=== PATIENT | female | born 1955 | race Caucasian/White ===

== ENCOUNTER 2022-02-17 23:52 | Emergency (ER) | payer OTHER, MEDICAID ==
[~2022-02-17] VITALS: Ht 170.2 cm; Wt 84.5 kg
[2022-02-18] MEDS ORDERED: LORazepam 2 mg/ml vial IV ONE
[2022-02-18 00:39] LABS: BASOPHILS % (AUTO) 0.5 % (0-1); EOSINOPHILS # (AUTO) 0.1 X10'3 (0-0.9); EOSINOPHILS % (AUTO) 1.8 % (0-6); HEMATOCRIT 39.5 % (35.0-45.0); HEMOGLOBIN 13.6 g/dl (12.0-16.0); LYMPHOCYTES # (AUTO) 0.6 X10'3 (1.1-4.8); LYMPHOCYTES % (AUTO) 10.1 % (21-51); MEAN CORPUSCULAR HEMOGLOBIN 30.6 PG (27.0-31.0); MEAN CORPUSCULAR HGB CONC 34.5 g/dL (33.0-36.5); MEAN CORPUSCULAR VOLUME 88.6 FL (78-98); MEAN PLATELET VOLUME 7.8 FL (7.4-10.4); MONOCYTES # (AUTO) 0.4 X10'3 (0-0.9); MONOCYTES % (AUTO) 7.1 % (2-12); NEUTROPHILS # (AUTO) 5.1 X10'3 (1.8-7.7); NEUTROPHILS % (AUTO) 80.5 % (42-75); PLATELET COUNT 235 X10'3 (140-440); RED BLOOD COUNT 4.46 X10'6 (4.20-5.60); RED CELL DISTRIBUTION WIDTH 13.6 % (11.5-14.5); WHITE BLOOD COUNT 6.3 X10'3 (4.5-11.0)
[2022-02-18] MEDS ORDERED: acetaminophen 325mg tablet PO ONE (00:50)
[2022-02-18 01:01] LABS: ALANINE AMINOTRANSFERASE 42 U/L (12-78); ALBUMIN 3.7 G/DL (3.4-5.0); ALKALINE PHOSPHATASE 86 IU/L (46-116); ANION GAP 12 (8-16); ASPARTATE AMINO TRANSFERASE 28 U/L (10-37); BILIRUBIN,TOTAL 0.8 MG/DL (0.1-1.0); BLOOD UREA NITROGEN 20 MG/DL (7-18); BUN/CREATININE RATIO 19.4 (6.6-38.0); CALCIUM 8.8 MG/DL (8.5-10.1); CHLORIDE 106 MMOL/L (99-107); CREATININE 1.03 MG/DL (0.40-0.90); GLUCOSE 114 MG/DL (70-104); LIPASE 84 U/L (73-393); MAGNESIUM 2.1 MG/DL (1.5-2.4); POTASSIUM 3.9 MMOL/L (3.5-5.1); SODIUM 141 MMOL/L (135-145); TOTAL CARBON DIOXIDE 23.3 MMOL/L (24-32); TOTAL PROTEIN 7.4 G/DL (6.4-8.2); eGFR 54 ML/MIN
[2022-02-18 01:40] LABS: CLARITY,URINE CLEAR (Clear); COLOR,URINE YELLOW (Yellow); GLUCOSE, URINE NEGATIVE (Neg); KETONES,URINE NEGATIVE (Neg); LEUKOCYTE ESTERASE ,URINE NEGATIVE (Neg); NITRITES, URINE NEGATIVE (Neg); OCCULT BLOOD,URINE NEGATIVE (Neg); PROTEIN,URINE NEGATIVE (Neg); UROBILINOGEN,URINE 0.2 E.U/dL (0.2-1.0)
[2022-02-18 01:50] LABS: UA COLLECTION TYPE NON-SPECIFIED
[2022-02-18] MEDS ORDERED: diphenhydrAMINE 50 mg/ml inj IV PRN (03:35)
[2022-02-18] MEDS ORDERED: famotidine/PF 10 mg/ml inj IV PRN (03:35)
[2022-02-18] MEDS ORDERED: epiNEPHrine 1 mg/ml inj IM PRN (03:35)
[2022-02-18] MEDS ORDERED: acetaminophen 325mg tablet PO PRN (03:35)
[2022-02-18] MEDS ORDERED: albuterol 2.5 MG/3 ML nebule NEB PRN (03:35)
[2022-02-18] MEDS ORDERED: hydrocortisone sod succ/PF 100mg/2ml inj. IV PRN (03:35)
[2022-02-18] MEDS ORDERED: BEBTELOVIMAB 175 MG/2 ML VIAL IV ONE (03:35)
[2022-02-18 03:42] LABS: C-REACTIVE PROTEIN 0.56 MG/DL (0.0-0.5)
--- NOTE | 2022-02-18 04:01 | NUR ---
PT GIVEN THE BEBTELOVIMAD INJECTION IVP. PT VERBALLY CONSENTED, PT [id number] 3. NO DISTRESS, WILL CONT TO MONITOR THROUGHOUT
[2022-02-18 04:43] LABS: D-DIMER 1.28 MG/L FEU (0-0.50)
[2022-02-18 04:50] VITALS: BP 126/72
--- NOTE | 2022-02-18 05:06 | NUR ---
PT WAS CALLED TO PICK PT UP FOR DISCHARGE. STATES THAT IT WILL BE ABOUT AN HOUR
--- NOTE | 2022-02-18 06:19 | NUR ---
PT [phone]
== END 2022-02-18 06:26 | disposition home or self-care (01) ==
LOC: ER 23:52
DX: U07.1 COVID-19 (principal); R30.0 Dysuria; R30.9 Painful micturition, unspecified; I51.9 Heart disease, unspecified; Z88.0 Allergy status to penicillin; Z88.6 Allergy status to analgesic agent; Z88.8 Allergy status to other drugs, medicaments and biological substances
CPT/HCPCS: 36415; 71045; 80053; 81003; 83605; 83690; 83735; 83880; 84145; 84484; 85025; 85379; 86140; 87040; 87502; 87503; 87635; 93005; 96374; 96375; 99291; C9803; J2060; M0222; Q0222